=== PATIENT | male | born 1955 | race Hispanic/Latino ===

== ENCOUNTER → 2021-03-17 | Outpatient (CLI) | payer OTHER, MEDICARE | END | disposition home or self-care (01) | LOC: RAH 13:09 | PROVIDERS: ATTEND Family Medicine | DX: R60.0 Localized edema (principal); M79.662 Pain in left lower leg; M79.661 Pain in right lower leg | CPT/HCPCS: 93970 ==

== ENCOUNTER 2022-03-09 18:29 | Emergency (ER) | payer OTHER, MEDICARE ==
[~2022-03-09] VITALS: Ht 182.9 cm; Wt 110.7 kg
[2022-03-09 19:08] LABS: BASOPHILS % (AUTO) 0.2 % (0.0-5.0); HEMATOCRIT 43.3 % (42-54); LYMPHOCYTES % (AUTO) 31.4 % (21.0-51.0); MEAN CORPUSCULAR HEMOGLOBIN 31.6 pg (27.0-33.0); MEAN CORPUSCULAR HGB CONC 34.2 g/dL (32.0-36.0); MEAN CORPUSCULAR VOLUME 92.3 fL (79-99); MONOCYTES % (AUTO) 6.9 % (3.0-13.0); NEUTROPHILS % (AUTO) 60.2 % (40.0-77.0); PLATELET COUNT (AUTO) 166 K/uL (130-400); RED BLOOD CELL COUNT(AUTO) 4.69 MIL/uL (4.50-6.20); RED CELL DISTRIBUTION WIDTH 13.2 % (11.0-15.5)
[2022-03-09 19:19] LABS: CREATININE 0.8 mg/dL (0.5-1.5); POTASSIUM 3.9 mmol/L (3.5-5.1)
[2022-03-09 19:38] LABS: ALBUMIN 3.9 g/dL (3.5-5.0); BILIRUBIN,TOTAL 1.7 mg/dL (0.2-1.0)
[2022-03-09 20:12] LABS: APPEARANCE,URINE Clear (CLEAR); BILIRUBIN,URINE Negative (NEGATIVE); COLOR,URINE Yellow (YELLOW); GLUCOSE, URINE (UA) Negative (NEGATIVE); KETONES,URINE Negative (NEGATIVE); LEUKOCYTE ESTERASE ,URINE Negative (NEGATIVE); NITRATE,URINE Negative (NEGATIVE); OCCULT BLOOD,URINE Negative (NEGATIVE); PROTEIN,URINE Negative (NEGATIVE); UROBILINOGEN,URINE 0.2 mg/dL (0.2-1.0)
[2022-03-09 21:53] VITALS: BP 121/61
== END 2022-03-09 21:56 | disposition home or self-care (01) ==
LOC: EDH 18:29
DX: I10 Essential (primary) hypertension (principal); R00.1 Bradycardia, unspecified; E11.9 Type 2 diabetes mellitus without complications
CPT/HCPCS: 36415; 80053; 81003; 84484; 85025; 93005

== ENCOUNTER 2023-05-10 08:58 | Emergency (ER) | payer OTHER ==
[~2023-05-10] VITALS: Ht 182.9 cm; Wt 108.9 kg
[2023-05-10 09:31] LABS: BASOPHILS % (AUTO) 0.3 % (0.0-5.0); EOSINOPHILS % (AUTO) 0.1 % (0.0-8.0); HEMATOCRIT 44.2 % (42-54); LYMPHOCYTES % (AUTO) 9.5 % (21.0-51.0); MEAN CORPUSCULAR HEMOGLOBIN 31.8 pg (27.0-33.0); MEAN CORPUSCULAR HGB CONC 33.3 g/dL (32.0-36.0); MEAN CORPUSCULAR VOLUME 95.7 fL (79-99); MONOCYTES % (AUTO) 6.8 % (3.0-13.0); NEUTROPHILS % (AUTO) 82.9 % (40.0-77.0); PLATELET COUNT (AUTO) 134 K/uL (130-400); RED BLOOD CELL COUNT(AUTO) 4.62 MIL/uL (4.50-6.20); RED CELL DISTRIBUTION WIDTH 13.4 % (11.0-15.5); WHITE BLOOD COUNT (AUTO) 7.1 K/uL (4.8-10.8)
[2023-05-10 09:36] LABS: APPEARANCE,URINE CLEAR (CLEAR); BILIRUBIN,URINE NEGATIVE (NEGATIVE); COLOR,URINE LIGHT-YELLOW (YELLOW); GLUCOSE, URINE (UA) >=1000 mg/dL (NEGATIVE); KETONES,URINE NEGATIVE (NEGATIVE); LEUKOCYTE ESTERASE ,URINE NEGATIVE Leu/uL (NEGATIVE); NITRATE,URINE NEGATIVE (NEGATIVE); OCCULT BLOOD,URINE NEGATIVE (NEGATIVE); PROTEIN,URINE NEGATIVE (NEGATIVE); UROBILINOGEN,URINE 0.2 mg/dL (0.2-1.0)
[2023-05-10 09:37] LABS: CREATININE 0.9 mg/dL (0.5-1.5); POTASSIUM 4.4 mmol/L (3.5-5.1)
[2023-05-10 09:42] LABS: ALBUMIN 3.5 g/dL (3.5-5.0); TOTAL PROTEIN, SERUM 6.4 g/dL (6.0-8.3)
[2023-05-10 12:24] VITALS: BP 128/54
== END 2023-05-10 12:24 | disposition home or self-care (01) ==
LOC: EDH 08:58
DX: M54.50 Low back pain, unspecified (principal); M79.18 Myalgia, other site; E11.9 Type 2 diabetes mellitus without complications; E78.00 Pure hypercholesterolemia, unspecified; Z79.899 Other long term (current) drug therapy
CPT/HCPCS: 36415; 74176; 80053; 81001; 85025

== ENCOUNTER 2024-09-16 04:42 | Emergency (ER) | payer OTHER ==
[~2024-09-16] VITALS: Ht 182.9 cm; Wt 108.9 kg
[2024-09-16 05:57] LABS: BASOPHILS # (AUTO) 0.02 K/uL (0.00-0.20); BASOPHILS % (AUTO) 0.3 % (0.0-5.0); EOSINOPHILS # (AUTO) 0.08 K/uL (0.00-0.70); EOSINOPHILS % (AUTO) 1.3 % (0.0-8.0); HEMATOCRIT 45.4 % (42-54); IMMATURE GRANULOCYTE ABSOLUTE 0.03 K/uL (0-1); LYMPHOCYTES # (AUTO) 1.9 K/uL (1.0-4.8); LYMPHOCYTES % (AUTO) 30.9 % (21.0-51.0); MEAN CORPUSCULAR HEMOGLOBIN 32.4 pg (27.0-33.0); MEAN CORPUSCULAR HGB CONC 34.6 g/dL (32.0-36.0); MEAN CORPUSCULAR VOLUME 93.6 fL (79-99); MONOCYTES # (AUTO) 0.4 K/uL (0.1-1.0); MONOCYTES % (AUTO) 7.2 % (3.0-13.0); NEUTROPHILS # (AUTO) 3.7 K/uL (1.8-7.7); NEUTROPHILS % (AUTO) 59.8 % (40.0-77.0); PLATELET COUNT (AUTO) 147 K/uL (130-400); RED BLOOD CELL COUNT(AUTO) 4.85 MIL/uL (4.50-6.20); RED CELL DISTRIBUTION WIDTH 13.1 % (11.0-15.5); WHITE BLOOD COUNT (AUTO) 6.1 K/uL (4.8-10.8)
[2024-09-16 06:14] LABS: CREATININE 1.1 mg/dL (0.5-1.3); POTASSIUM 4.4 mmol/L (3.5-5.1)
[2024-09-16 06:19] VITALS: BP 130/74; PULSE 64; RESP 20; TEMP 98.2; O2SAT 100
== END 2024-09-16 06:23 | disposition home or self-care (01) ==
LOC: EDH 04:42
DX: M25.532 Pain in left wrist (principal); E11.9 Type 2 diabetes mellitus without complications; E78.00 Pure hypercholesterolemia, unspecified; I10 Essential (primary) hypertension
CPT/HCPCS: 36415; 80048; 85025

== ENCOUNTER 2024-12-28 23:29 | Emergency (ER) | payer OTHER, MEDICARE ==
[~2024-12-28] VITALS: Ht 182.9 cm; Wt 108.9 kg
[2024-12-28 23:30] VITALS: TEMP 98.1
--- NOTE | 2024-12-28 23:36 | ERN ---
ED Note History of Present Illness Stated Complaint: EYE Chief Complaint: Eye Problems Time Seen by MD: 23:34 Dictation: PATIENT IS A 69-YEAR-OLD MALE COMING IN [facility] WITH TWO COMPLAINTS 1ST COMPLAINT IS HE WAS WATCHING A BOXING MATCH THIS EVENING AND JUMPING UP AND DOWN WHEN HE HAD A HEADACHE AND HE HAD AN IMMEDIATE RED EYE TO THE RIGHT. NO VISION CHANGES. STATES HE DID NOT TAKE ANYTHING FOR THE HEADACHE AND IN HIS NOW RESOLVED. HE DENIES ANY VISION CHANGES STATES HE DOES HAVE A HISTORY OF HYPERTENSION BUT TOOK HIS MEDICINES THIS MORNING. SYSTOLIC IS 155 IN TRIAGE. NO CHEST PAIN BACK PAIN. NO NAUSEA VOMITING NO SOB. Allergies: Coded Allergies: No Known Drug Allergies (Unverified Allergy, Unknown, 03/09/22) Past Medical History Past Medical History: Diabetes-Type II, High Cholesterol, Hypertension Surgical History: None RN Note Reviewed/Agreed w/PFSH: Yes Review of System Dictation CONSTITUTIONAL: NEGATIVE EXCEPT FOR HPI HEAD/FACE: NEGATIVE EXCEPT FOR HPI EENT: NEGATIVE EXCEPT FOR HPI RIGHT RED EYE RESPIRATORY: NEGATIVE EXCEPT FOR HPI GASTROINTESTINAL/ABDOMINAL: NEGATIVE EXCEPT FOR HPI GENITOURINARY: NEGATIVE EXCEPT FOR HPI MUSCULOSKELETAL: NEGATIVE EXCEPT FOR HPI INTEGUMENTARY: NEGATIVE EXCEPT FOR HPI NEUROLOGICAL/PSYCH: NEGATIVE EXCEPT FOR HPI HEADACHE HEMATOLOGIC/LYMPHATIC: NEGATIVE EXCEPT FOR HPI ALL SYSTEMS NEGATIVE, EXCEPT NOTED ABOVE. 13 POINT REVIEW OF SYSTEMS ASSESSED AND ALL NEGATIVE EXCEPT FOR ABOVE. Initial Vital Sign VS Vital Signs Date Time Temp Pulse Resp B/P (MAP) Pulse Ox O2 Delivery O2 Flow Rate FiO2 12/28/24 23:30 98.1 44 18 155/56 94 Room Air 0 12/29/24 00:46 21 Physical Exam Dictation VITAL SIGNS REVIEWED GENERAL APPEARANCE: ALERT, ORIENTED X 3, NO ACUTE DISTRESS, WELL DEVELOPED, NOURISHED. HEAD AND FACE: NON-TRAUMATIC. EYES: PERRL, RIGHT SUBCONJUNCTIVAL HEMORRHAGE, EYELID NO TRAUMA, ANTERIOR CHAMBER WITH ARCUS SENILIS. EOMS INTACT PERRLA EARS: PINNAS INTACT AND NO SIGNS OF TRAUMA OR ERYTHEMA EAR CANALS CLEAR AND NO DISCHARGE TM NO ERYTHEMA NOSE: NO DISCHARGE, NO BLEEDING. OROPHARYNX: MOUTH NORMAL, TONGUE PINK, PHARYNX CLEAR,NO ERYTHEMA, TONSILS NO EXUDATES, NO ABSCESSES NOTED, MUCOUS MEMBRANE MOIST NECK: SUPPLE, NON-TENDER, NO THYROMEGALY, NO MASSES, NO JVD, NO BRUITS BREAST:DEFERRED CHEST:NO TENDERNESS, NO CREPITUS, NO PARADOXICAL MOVEMENT, NO RETRACTIONS LUNGS:CLEAR, WELL-VENTILATED, SYMMETRIC, NO RALES, NO WHEEZING, NO RHONCHI, NO STRIDOR, GOOD BREATH SOUNDS BILATERALLY HEART: REGULAR RATE, REGULAR RHYTHM, NO MURMUR, NO GALLOPS VASCULAR: NO PERIPHERAL EDEMA, ABDOMEN: SOFT, POSITIVE BOWEL SOUNDS, NONDISTENDED, NO GUARDING, NONTENDER, NO REBOUND, NO MASSES NO HEPATOMEGALY, NO SPLENOMEGALY, NO CORRIGAN'S SIGN, NO HERNIAS. RECTAL: DEFERRED GENITAL: DEFERRED NEUROLOGICAL: NORMAL SPEECH, MOTOR FUNCTION INTACT, SENSORY FUNCTION INTACT MUSCULOSKELETAL: NECK NONTENDER, FULL RANGE OF MOTION, BACK NONTENDER, FULL RANGE OF MOTION, EXTREMITIES: NONTENDER, FULL RANGE OF MOTION SKIN: COLOR PINK, DRY, NO TURGOR, NO RASH, NO LACERATIONS, NO ABRASIONS, NO CONTUSIONS. LYMPHATIC: DEFERRED Results (Laboratory/Radiology) Laboratory/Radiology Laboratory Tests Test 12/28/24 23:59 White Blood Count 8.2 K/uL (4.8-10.8) Red Blood Count 5.11 MIL/uL (4.50-6.20) Hemoglobin 16.4 g/dL (14.0-18.0) Hematocrit 48.1 % (42-54) Mean Corpuscular Volume 94.1 fL (79-99) Mean Corpuscular Hemoglobin 32.1 pg (27.0-33.0) Mean Corpuscular Hemoglobin Concent 34.1 g/dL (32.0-36.0) Red Cell Distribution Width 13.2 % (11.0-15.5) Platelet Count 164 K/uL (130-400) Mean Platelet Volume 11.2 fL (7.5-10.5) H Immature Granulocyte % (Auto) 0.5 % (0-1) Neutrophils (%) (Auto) 63.5 % (40.0-77.0) Lymphocytes (%) (Auto) 27.5 % (21.0-51.0) Monocytes (%) (Auto) 7.4 % (3.0-13.0) Eosinophils (%) (Auto) 0.9 % (0.0-8.0) Basophils (%) (Auto) 0.2 % (0.0-5.0) Neutrophils # (Auto) 5.2 K/uL (1.8-7.7) Lymphocytes # (Auto) 2.3 K/uL (1.0-4.8) Monocytes # (Auto) 0.6 K/uL (0.1-1.0) Eosinophils # (Auto) 0.07 K/uL (0.00-0.70) Basophils # (Auto) 0.02 K/uL (0.00-0.20) Absolute Immature Granulocyte (auto 0.04 K/uL (0-1) Nucleated Red Blood Cells 0.0 % (0.0-0.19) Sodium Level 138 mmol/L (136-145) Potassium Level 4.4 mmol/L (3.5-5.1) Chloride Level 101 mmol/L (101-111) Carbon Dioxide Level 34 mmol/L (21-32) H Blood Urea Nitrogen 22 mg/dL (7-18) H Creatinine 1.1 mg/dL (0.5-1.3) Glomerular Filtration Rate Calc 72 mL/min (>90) Random Glucose 151 mg/dL (70-105) H Total Calcium 9.4 mg/dL (8.5-10.1) Troponin I High Sensitivity 9 ng/L (4-75) Labs Reviewed?: Yes EKG Comment: EKG sinus bradycardia with first-degree AV block/right bundle branch block/heart rate 43 ED Course ED Course Orders Procedure Category Date Status Time Visual Acuity Test CPOE 12/28/24 Transmitted (Er) 23:34 Cbc With Differential LAB 12/28/24 Complete 23:34 Troponin I High LAB 12/28/24 Complete Sensitivity 23:34 12 Lead Ekg Tracing- EKG 12/28/24 Complete Technical 23:34 Basic Metabolic Panel LAB 12/28/24 Complete 23:34 Acetaminophen 500mg PHA 12/29/24 Complete Tab (Tylenol 500mg T 00:30 Current Medications Medications (Trade) Dose Ordered Sig/[place] Route PRN Reason Start Time Stop Time Status Last Admin Dose Admin Acetaminophen (TYLenol 500MG TAB) 1,000 mg ONCE ONCE PO 12/29/24 00:30 12/29/24 00:31 DC 12/29/24 00:33 Vital Signs Date Time Temp Pulse Resp B/P (MAP) Pulse Ox O2 Delivery O2 Flow Rate FiO2 12/29/24 00:46 45 16 137/46 98 Room Air* 0 21 12/28/24 23:30 98.1 44 18 155/56 94 Room Air 0 Visual acuity is intact see nurse's notes patient discharged home with right subconjunctival hemorrhage he is normotensive headache has resolved we will discharged home to follow up with his doctor. He was assured that there was no treatment needed for subconjunctival hemorrhage and that is HEART Score Response (Comments) Value EKG: Repolarization changes 1 Age: > 65yrs (+2) 2 Risk Factors: 1-2 risk factors (+1) 1 Initial Troponin: Normal limit (0) 0 Total 4 Medical Decision Making MDM Medical discharge making based on minimal cardiac workup Exam of right eye demonstrating a subconjunctival hemorrhage Cardiac workup is negative Patient reassured about subconjunctival hemorrhage and no intervention necessary, that this would resolve spontaneously. Told to see his primary care doctor Tuesday DX & DISP Disposition: Discharge Departure Impression: Primary Impression: Subconjunctival hemorrhage of right eye Additional Impression: Acute headache Condition: Stable Additional Instructions: Follow-up with primary care provider in 1 to 2 days. Take medications as directed here in the emergency room. Okay to continue home medications unless otherwise discussed during your visit in the emergency room today. Return to your nearest emergency room if symptoms worsen or if there is no improvement. Call 911 if you need immediate assistance. Take Tylenol or Motrin [id number] as needed and if no contraindications are present. Increase oral hydration. A wound culture or urine culture was ordered here in the emergency room department please follow-up with primary care provider and advise them to get repeat ports from our facility. If you had any Ryan wrap/splints that were applied here, please do not remove them until you see your primary care or specialty. See your primary care doctor on Tuesday for follow up, continue all your medications at home. Referrals: RADHA SIERRA MD (PCP) Time of Disposition: 00:49 I have reviewed the case, and I agree with, Diagnosis and Plan PANCHO CHUA NP Dec 28, 2024 23:36
--- NOTE | 2024-12-28 23:49 | EKG ---
[facility] Test Date: 2024-12-28 Test Time: 23:41:54 Pat Name: EDI ELLER Department: [facility] Patient ID: [facility] [place]-[id number] Room: Gender: M National Account Manager: [id number] : 1955 Requested By: PANCHO CHUA Order Number: [id number] Reading MD: Edgardo Theodore Measurements Intervals Campbell Rate: 43 P: 40 SC: 227 QRS: -37 QRSD: 129 T: 19 QT: 469 QTc: 396 Interpretive Statements Sinus bradycardia Borderline prolonged SC interval Right bundle branch block Compared to ECG 03/09/2022 19:06:40 Right bundle-branch block now present Left-axis deviation no longer present Electronically Signed On 12-29-2024 14:18:11 [employer] SET UP OPERATOR by Edgardo Theodore Please click the below link to view image of tracing.
[2024-12-29 00:27] LABS: CREATININE 1.1 mg/dL (0.5-1.3); POTASSIUM 4.4 mmol/L (3.5-5.1)
[2024-12-29 00:31] LABS: BASOPHILS # (AUTO) 0.02 K/uL (0.00-0.20); BASOPHILS % (AUTO) 0.2 % (0.0-5.0); EOSINOPHILS # (AUTO) 0.07 K/uL (0.00-0.70); EOSINOPHILS % (AUTO) 0.9 % (0.0-8.0); HEMATOCRIT 48.1 % (42-54); IMMATURE GRANULOCYTE ABSOLUTE 0.04 K/uL (0-1); LYMPHOCYTES # (AUTO) 2.3 K/uL (1.0-4.8); LYMPHOCYTES % (AUTO) 27.5 % (21.0-51.0); MEAN CORPUSCULAR HEMOGLOBIN 32.1 pg (27.0-33.0); MEAN CORPUSCULAR HGB CONC 34.1 g/dL (32.0-36.0); MEAN CORPUSCULAR VOLUME 94.1 fL (79-99); MONOCYTES # (AUTO) 0.6 K/uL (0.1-1.0); MONOCYTES % (AUTO) 7.4 % (3.0-13.0); NEUTROPHILS # (AUTO) 5.2 K/uL (1.8-7.7); NEUTROPHILS % (AUTO) 63.5 % (40.0-77.0); PLATELET COUNT (AUTO) 164 K/uL (130-400); RED BLOOD CELL COUNT(AUTO) 5.11 MIL/uL (4.50-6.20); RED CELL DISTRIBUTION WIDTH 13.2 % (11.0-15.5); WHITE BLOOD COUNT (AUTO) 8.2 K/uL (4.8-10.8)
[2024-12-29] MEDS: acetaMINOPHEN 500 MG TABLET PO ONE (00:33)
[2024-12-29 00:46] VITALS: BP 137/46; PULSE 45; RESP 16; O2SAT 98
== END 2024-12-29 01:02 | disposition home or self-care (01) ==
LOC: EDH 23:29
DX: H11.31 Conjunctival hemorrhage, right eye (principal); R51.9 Headache, unspecified; E11.9 Type 2 diabetes mellitus without complications; E78.00 Pure hypercholesterolemia, unspecified; I10 Essential (primary) hypertension
CPT/HCPCS: 36415; 80048; 84484; 85025; 93005; 99284